=== PATIENT | male | born 1955 | race Caucasian/White ===

== ENCOUNTER 2021-10-18 10:52 | Emergency (ER) | payer BC ==
[2021-10-18] MEDS ORDERED: Ketorolac Tromethamine 30 MG/ML VIAL ONE (11:22)
[2021-10-18] MEDS ORDERED: Boostrix 0.5 ML (Tdap) VIAL ONE (11:41)
[2021-10-18] MEDS ORDERED: ceFAZolin 2 GM/Dextrose 50 ML IVPB ONE (11:41)
== END 2021-10-18 12:30 | disposition home or self-care (01) ==
LOC: CSHERS 10:52
DX: S62.325A Displaced fracture of shaft of fourth metacarpal bone, left hand, initial encounter for closed fracture (principal); W32.0XXA Accidental handgun discharge, initial encounter
CPT/HCPCS: 26600; 90715; 96374; J0690; J1885

== ENCOUNTER 2021-10-27 14:06 | Outpatient (CLI) | payer BC ==
[2021-10-27 16:01] LABS: Hemoglobin 18.2 g/dL (13.5-17.5); Mean Corpuscular HGB CONC 34.7 g/dL (32.0-36.0); Mean Corpuscular Hemoglobin 30.2 pg (27.0-33.0); Mean Corpuscular Volume 87.1 fl (81.2-95.1); Mean Platelet Volume 10.8 fl (7.4-10.4); Platelet Count 345 10x3/uL (150-450); RBC Distribution Width 13.2 % (11.5-14.5); Red Blood Cell (RBC) Count 6.03 10x6/uL (4.32-5.72); White Blood Cell (WBC) Count 9.8 10x3/uL (3.5-10.5)
[2021-10-27 16:33] LABS: Anion Gap 18 mmol/L (10-20); BUN (Urea Nitrogen) 14 mg/dL (8.4-25.7); Calc. Creatinine Clearance 0 mL/min (70-130); Calcium 10.5 mg/dL (7.8-10.44); Carbon Dioxide 23 mmol/L (23-31); Chloride 106 mmol/L (98-107); Glucose 136 mg/dL (80-115); Potassium 4.3 mmol/L (3.5-5.1); Sodium 143 mmol/L (136-145)
[2021-10-28 00:02] LABS: SARS-CoV-2 PCR by NAA Not Detected (NotDetected)
== END 2021-10-27 14:07 | disposition home or self-care (01) ==
LOC: CSHLAB 14:06
PROVIDERS: ATTEND Orthopaedic Surgery
DX: Z01.818 Encounter for other preprocedural examination (principal); Z20.822 Contact with and (suspected) exposure to COVID-19
CPT/HCPCS: 80048; 85027; 93005; 93010; U0003; U0005

== ENCOUNTER 2021-10-30 10:10 | Day surgery (SDC) | payer BC ==
[2021-10-28 12:36] VITALS: BMI 35.5
[2021-10-30] MEDS ORDERED: Lidocaine 1% MPF 2 ML VIAL ONE (10:35)
[2021-10-30] MEDS ORDERED: Bupivacaine PF 0.5% 30 ML VIAL ONE (11:11)
[2021-10-30] MEDS ORDERED: Neomycin-Polymyxin 1 ML AMP ONE (11:11)
[2021-10-30] MEDS ORDERED: Dexamethasone 4 mg/ml Vial ONE (11:16)
[2021-10-30] MEDS ORDERED: Fentanyl 100 MCG/2 ML VIAL ONE (11:16)
[2021-10-30] MEDS ORDERED: Lidocaine 1% PF 5 ML VIAL ONE (11:16)
[2021-10-30] MEDS ORDERED: Ondansetron PF 4 MG/2 ML Vial ONE (11:16)
[2021-10-30] MEDS ORDERED: PROPOFOL 20 ML ONE (11:16)
[2021-10-30] MEDS ORDERED: ceFAZolin 2 GM/Dextrose 50 ML IVPB ONE (11:21)
== END 2021-10-30 13:15 | disposition home or self-care (01) ==
LOC: CSHSDC 10:10
PROVIDERS: ATTEND Orthopaedic Surgery
PROC: 0PSQ04Z Reposition Left Metacarpal with Internal Fixation Device, Open Approach (ICD-10-PCS; principal; 2021-10-30)
DX: S62.325A Displaced fracture of shaft of fourth metacarpal bone, left hand, initial encounter for closed fracture (principal); W32.0XXA Accidental handgun discharge, initial encounter; Y93.89 Activity, other specified
CPT/HCPCS: J0690; J1100; J2405; J2704; J3010; S0020